=== PATIENT | male | born 1980 | race Caucasian/White ===

== ENCOUNTER 2016-12-13 16:06 | Emergency (ER) | payer OTHER ==
[~2016-12-13] VITALS: Ht 190.5 cm; Wt 100.0 kg
[2016-12-13] MEDS ORDERED: ULTRAM50 M1 PO (17:17)
[2016-12-13 17:30] VITALS: BP 118/60
== END 2016-12-13 17:30 | disposition home or self-care (01) | DRG 552 ==
LOC: ED 16:06
DX: S16.1XXA Strain of muscle, fascia and tendon at neck level, initial encounter (principal); S09.90XA Unspecified injury of head, initial encounter; F17.210 Nicotine dependence, cigarettes, uncomplicated; V49.40XA Driver injured in collision with unspecified motor vehicles in traffic accident, initial encounter

== ENCOUNTER 2017-02-09 19:02 | Emergency (ER) | payer SELFPAY ==
[~2017-02-09] VITALS: Ht 190.5 cm; Wt 113.2 kg
[~2017-02-09 19:02] MED LIST: ULTRAM50 M1 PO
[2017-02-09 19:43] LABS: HEMATOCRIT 50.5 % (39.0-50.0); HEMOGLOBIN 17.6 g/dl (14.0-18.0); IMMATURE GRANULOCYTES 0.3 % (0.0-1.0); MEAN CELL VOLUME 86.6 fL CALC (80.0-100.0); MEAN CORPUSCULAR HGB 30.2 pG CALC (26.0-32.0); MEAN CORPUSCULAR HGB CONC 34.9 g/L CALC (32.0-36.0); NEUT# 9.06 thou/uL (1.82-7.42); RED BLOOD COUNT 5.83 mill/uL (4.70-6.10); RED CELL DISTRI WIDTH 12.5 % (11.5-15.5)
[2017-02-09 19:46] LABS: URINE BILIRUBIN - DIPSTICK NEGATIVE (NEGATIVE); URINE BLOOD DIPSTICK NEGATIVE (NEGATIVE); URINE COLOR YELLOW; URINE GLUCOSE - DIPSTICK NEGATIVE (NEGATIVE); URINE KETONE NEGATIVE (NEGATIVE); URINE NITRITE - DIPSTICK NEGATIVE (Negative); URINE PROTEIN - DIPSTICK NEGATIVE (NEG-TRACE); URINE UROBILINOGEN - DIPSTICK 0.2 E.U./dL (0.2)
[2017-02-09 19:48] LABS: BARBITURATES NEGATIVE (NEGATIVE); COCAINE NEGATIVE (NEGATIVE); METHADONE NEGATIVE (NEGATIVE); OXCYCODONE NEGATIVE (NEGATIVE); TETRAHYDROCANNABIONOL NEGATIVE (NEGATIVE); TRICYLIC ANTIDEPRESSANTS NEGATIVE (NEGATIVE)
[2017-02-09 19:49] LABS: URINE CLARITY HAZY; URINE LEUK ESTERASE SMALL (NEGATIVE)
[2017-02-09 19:51] LABS: ALBUMIN 5.1 g/dL (3.2-5.0); ALKALINE PHOSPHATASE 98 u/l (38-126); AMYLASE 55 u/l (30-110); ANION GAP 19 (6-22 (CALC)); BILIRUBIN, TOTAL 1.2 mg/dL (0.0-1.4); BUN 13 mg/dL (9-20); BUN/CREATININE RATIO 10 (12-20 (CALC)); CALCIUM 9.7 mg/dL (8.4-10.2); CARBON DIOXIDE 28 mmol/l (22-30); CHLORIDE 100 mmol/l (95-108); CREATININE 1.3 mg/dL (0.7-1.3); GFR > 60 ML/MIN (>=60 (CALC)); GFR FOR AFR.AMER. > 60 ML/MIN (>=60 (CALC)); GLUCOSE 110 mg/dL (75-110); LIPASE 25 u/l (23-300); POTASSIUM 4.3 mmol/l (3.5-5.1); SGOT/AST 50 u/l (17-59); SGPT/ALT 56 u/l (21-72); SODIUM 143 mmol/l (137-146); TOTAL PROTEIN 8.9 g/dL (6.3-8.2)
[2017-02-09 20:39] LABS: INFLUENZA A NONE DETECTED (NONE DETECT); INFLUENZA B NONE DETECTED (NONE DETECT)
[2017-02-10] MEDS ORDERED: CIPROFLOXACN500 MG PO (00:21)
[2017-02-10 00:25] VITALS: BP 99/62
[2017-02-11] MEDS ORDERED: ZPAK PO (22:45)
== END 2017-02-10 00:25 | disposition home or self-care (01) | DRG 690 ==
LOC: ED 19:02
PROVIDERS: Emergency Medicine
DX: N39.0 Urinary tract infection, site not specified (principal); R51 Headache; R11.2 Nausea with vomiting, unspecified

== ENCOUNTER 2017-02-11 19:48 | Emergency (ER) | payer SELFPAY ==
[~2017-02-11] VITALS: Ht 190.5 cm; Wt 112.8 kg
[~2017-02-11 19:48] MED LIST changes: +CIPROFLOXACN500 MG PO
[2017-02-11 21:48] LABS: HEMATOCRIT 51.6 % (39.0-50.0); HEMOGLOBIN 17.9 g/dl (14.0-18.0); IMMATURE GRANULOCYTES 0.4 % (0.0-1.0); MEAN CORPUSCULAR HGB 30.2 pG CALC (26.0-32.0); MEAN CORPUSCULAR HGB CONC 34.7 g/L CALC (32.0-36.0); NEUT# 7.94 thou/uL (1.82-7.42); RED BLOOD COUNT 5.93 mill/uL (4.70-6.10); RED CELL DISTRI WIDTH 12.4 % (11.5-15.5)
[2017-02-11 22:00] LABS: ALBUMIN 5.4 g/dL (3.2-5.0); BILIRUBIN, TOTAL 1.1 mg/dL (0.0-1.4); CALCIUM 10.2 mg/dL (8.4-10.2); CREATININE 1.9 mg/dL (0.7-1.3); POTASSIUM 3.9 mmol/l (3.5-5.1); TOTAL PROTEIN 8.9 g/dL (6.3-8.2)
[2017-02-11] MEDS ORDERED: ZPAK PO (22:45)
[2017-02-11 23:25] VITALS: BP 126/84
== END 2017-02-11 23:38 | disposition home or self-care (01) | DRG 194 ==
LOC: ED 19:48
PROVIDERS: Emergency Medicine
DX: J18.9 Pneumonia, unspecified organism (principal); N17.9 Acute kidney failure, unspecified; F17.210 Nicotine dependence, cigarettes, uncomplicated; R06.02 Shortness of breath

== ENCOUNTER 2018-12-22 18:04 | Emergency (ER) | payer SELFPAY ==
[~2018-12-22] VITALS: Ht 190.5 cm; Wt 90.0 kg
[~2018-12-22 18:04] MED LIST changes: +ZPAK PO
[2018-12-22 18:22] LABS: URINE BILIRUBIN - DIPSTICK NEGATIVE (NEGATIVE); URINE BLOOD DIPSTICK NEGATIVE (NEGATIVE); URINE COLOR YELLOW; URINE GLUCOSE - DIPSTICK NEGATIVE (NEGATIVE); URINE KETONE NEGATIVE (NEGATIVE); URINE LEUK ESTERASE NEGATIVE (NEGATIVE); URINE NITRITE - DIPSTICK NEGATIVE (Negative); URINE PH 5.5 (4.5-8.0); URINE PROTEIN - DIPSTICK NEGATIVE (NEG-TRACE); URINE SPECIFIC GRAVITY >=1.030; URINE UROBILINOGEN - DIPSTICK 0.2 E.U./dL (0.2)
[2018-12-22 18:26] LABS: HEMATOCRIT 52.5 % (39.0-50.0); HEMOGLOBIN 17.8 g/dl (14.0-18.0); IMMATURE GRANULOCYTES 0.3 % (0.0-5.0); MEAN CELL VOLUME 88.5 fL CALC (80.0-100.0); MEAN CORPUSCULAR HGB CONC 33.9 g/L CALC (32.0-36.0); NEUT# 8.06 thou/uL (1.82-7.42); RED BLOOD COUNT 5.93 mill/uL (4.70-6.10); RED CELL DISTRI WIDTH 12.4 % (11.5-15.5)
[2018-12-22 18:44] LABS: ALBUMIN 4.9 g/dL (3.2-5.0); ALKALINE PHOSPHATASE 94 u/l (38-126); ANION GAP 15 (6-22 (CALC)); BILIRUBIN, TOTAL 1.1 mg/dL (0.0-1.4); BUN 10 mg/dL (9-20); BUN/CREATININE RATIO 7 (12-20 (CALC)); CARBON DIOXIDE 29 mmol/l (22-30); CHLORIDE 101 mmol/l (95-108); CREATININE 1.3 mg/dL (0.7-1.3); GFR > 60 ML/MIN (>=60 (CALC)); GFR FOR AFR.AMER. > 60 ML/MIN (>=60 (CALC)); POTASSIUM 4.3 mmol/l (3.5-5.1); SGOT/AST 43 u/l (17-59); SODIUM 141 mmol/l (137-146); TOTAL PROTEIN 8.1 g/dL (6.3-8.2)
[2018-12-22] MEDS ORDERED: ORPHENADRINE100 MG PO (20:10)
[2018-12-22] MEDS ORDERED: IBUPROFEN600 MG PO (20:10)
[2018-12-22 20:25] VITALS: BP 116/70
== END 2018-12-22 20:25 | disposition home or self-care (01) | DRG 552 ==
LOC: ED 18:04
PROVIDERS: Emergency Medicine
DX: M54.5 Low back pain (principal); F17.200 Nicotine dependence, unspecified, uncomplicated; Z87.442 Personal history of urinary calculi
CPT/HCPCS: Q9967

== ENCOUNTER 2019-02-20 20:03 | Emergency (ER) | payer SELFPAY ==
[~2019-02-20] VITALS: Ht 190.5 cm; Wt 104.5 kg
[~2019-02-20 20:03] MED LIST changes: +IBUPROFEN600 MG PO; +ORPHENADRINE100 MG PO
[2019-02-20] MEDS ORDERED: NAPROXEN500 MG PO (20:48)
[2019-02-20 21:00] VITALS: BP 126/82
== END 2019-02-20 21:00 | disposition home or self-care (01) | DRG 563 ==
LOC: ED 20:03
DX: S93.402A Sprain of unspecified ligament of left ankle, initial encounter (principal); S93.602A Unspecified sprain of left foot, initial encounter; F17.210 Nicotine dependence, cigarettes, uncomplicated; W17.2XXA Fall into hole, initial encounter; Y93.9 Activity, unspecified; Y92.89 Other specified places as the place of occurrence of the external cause; Y99.0 Civilian activity done for income or pay

== ENCOUNTER 2019-06-04 19:07 | Emergency (ER) | payer SELFPAY ==
[~2019-06-04] VITALS: Ht 190.5 cm; Wt 106.8 kg
[~2019-06-04 19:07] MED LIST changes: +NAPROXEN500 MG PO
[2019-06-04] MEDS ORDERED: VOLTAREN - GENE75 MG PO (20:44)
[2019-06-04] MEDS ORDERED: TRAMADOL HCL50 MG PO (20:44)
[2019-06-04 20:46] VITALS: BP 130/86
== END 2019-06-04 20:50 | disposition home or self-care (01) | DRG 605 ==
LOC: ED 19:07
DX: S90.31XA Contusion of right foot, initial encounter (principal); F17.210 Nicotine dependence, cigarettes, uncomplicated; W20.8XXA Other cause of strike by thrown, projected or falling object, initial encounter; Y93.89 Activity, other specified; Y92.89 Other specified places as the place of occurrence of the external cause; Y99.0 Civilian activity done for income or pay

== ENCOUNTER 2019-09-06 | Emergency (ER) | payer SELFPAY ==
[~2019-09-06] MED LIST changes: +TRAMADOL HCL50 MG PO; +VOLTAREN - GENE75 MG PO
[2019-09-06 04:02] LABS: HEMATOCRIT 50.5 % (39.0-50.0); IMMATURE GRANULOCYTES 0.5 % (0.0-5.0); MEAN CELL VOLUME 88.8 fL CALC (80.0-100.0); MEAN CORPUSCULAR HGB 29.9 pG CALC (26.0-32.0); MEAN CORPUSCULAR HGB CONC 33.7 g/dL CAL (32.0-36.0); NEUT# 4.45 thou/uL (1.82-7.42); RED BLOOD COUNT 5.69 mill/uL (4.70-6.10); RED CELL DISTRI WIDTH 12.3 % (11.5-15.5)
[2019-09-06 04:18] LABS: AMYLASE 60 u/l (30-110); LIPASE 87 u/l (23-300)
[2019-09-06 04:20] LABS: ALBUMIN 4.3 g/dL (3.2-5.0); ALKALINE PHOSPHATASE 117 u/l (38-126); ANION GAP 12 (6-22 (CALC)); BUN 13 mg/dL (9-20); BUN/CREATININE RATIO 12 (12-20 (CALC)); CARBON DIOXIDE 27 mmol/l (22-30); CHLORIDE 104 mmol/l (95-108); CREATININE 1.1 mg/dL (0.7-1.3); GFR > 60 ML/MIN (>=60 (CALC)); GFR FOR AFR.AMER. > 60 ML/MIN (>=60 (CALC)); POTASSIUM 4.1 mmol/l (3.5-5.1); SGOT/AST 47 u/l (17-59); SODIUM 139 mmol/l (137-146); TOTAL PROTEIN 7.5 g/dL (6.3-8.2)
[2019-09-06 04:30] LABS: BILIRUBIN, TOTAL 0.4 mg/dL (0.0-1.4)
[2019-09-06] MEDS ORDERED: ONDANSETRON4 MG PO (05:39)
[2019-09-06] MEDS ORDERED: LORTAB 1010 MG PO (05:39)
== END 2019-09-06 06:16 | disposition home or self-care (01) | DRG 694 ==
PROVIDERS: Emergency Medicine
DX: N13.2 Hydronephrosis with renal and ureteral calculous obstruction (principal); F17.200 Nicotine dependence, unspecified, uncomplicated; Z87.442 Personal history of urinary calculi

== ENCOUNTER 2020-07-04 14:51 | Emergency (ER) | payer SELFPAY ==
[~2020-07-04] VITALS: Ht 190.5 cm; Wt 90.0 kg
[~2020-07-04 14:51] MED LIST changes: +LORTAB 1010 MG PO; +ONDANSETRON4 MG PO
[2020-07-04] MEDS ORDERED: MOTRIN800 MG PO (16:59)
[2020-07-04] MEDS ORDERED: KEFLEX500 MG PO (16:59)
[2020-07-04] MEDS ORDERED: ERYTHROMYCIN O3.5 GM OU (17:00)
[2020-07-04 17:10] VITALS: BP 139/89
== END 2020-07-04 17:10 | disposition home or self-care (01) | DRG 125 ==
LOC: ED 14:51
DX: S01.131A Puncture wound without foreign body of right eyelid and periocular area, initial encounter (principal); F17.200 Nicotine dependence, unspecified, uncomplicated; W60.XXXA Contact with nonvenomous plant thorns and spines and sharp leaves, initial encounter; Y93.H2 Activity, gardening and landscaping; Y92.9 Unspecified place or not applicable; Y99.0 Civilian activity done for income or pay

== ENCOUNTER 2020-08-31 16:57 | Emergency (ER) | payer SELFPAY ==
[~2020-08-31] VITALS: Ht 190.5 cm; Wt 113.6 kg
[~2020-08-31 16:57] MED LIST changes: +ERYTHROMYCIN O3.5 GM OU; +KEFLEX500 MG PO; +MOTRIN800 MG PO
[2020-08-31] MEDS ORDERED: AMOX/K CLAV875 M1 PO (17:35)
[2020-08-31 17:50] VITALS: BP 128/83
== END 2020-08-31 17:50 | disposition home or self-care (01) | DRG 159 ==
LOC: ED 16:57
DX: K04.7 Periapical abscess without sinus (principal); F17.210 Nicotine dependence, cigarettes, uncomplicated

== ENCOUNTER 2020-12-12 17:26 | Emergency (ER) | payer MEDICAID ==
[~2020-12-12] VITALS: Ht 190.5 cm; Wt 102.0 kg
[~2020-12-12 17:26] MED LIST changes: +AMOX/K CLAV875 M1 PO
[2020-12-12 18:26] VITALS: BP 148/81
== END 2020-12-12 18:30 | disposition home or self-care (01) | DRG 556 ==
LOC: ED 17:26
DX: M25.572 Pain in left ankle and joints of left foot (principal); F17.210 Nicotine dependence, cigarettes, uncomplicated; X50.0XXA Overexertion from strenuous movement or load, initial encounter; Y93.89 Activity, other specified; Y92.89 Other specified places as the place of occurrence of the external cause; Y99.0 Civilian activity done for income or pay

== ENCOUNTER 2023-02-28 10:21 | Emergency (ER) | payer SELFPAY ==
[~2023-02-28] VITALS: Ht 190.5 cm; Wt 104.3 kg
[2023-02-28 11:09] LABS: BASO% 0.5 % (0-3); EOS% 1.6 % (0-8); HEMATOCRIT 45.7 % (39.0-50.0); HEMOGLOBIN 15.8 g/dl (14.0-18.0); IMMATURE GRANULOCYTES 0.1 % (0.0-5.0); LYMPH% 20.3 % (15-41); MEAN CELL VOLUME 87.7 fL CALC (80.0-100.0); MEAN CORPUSCULAR HGB 30.3 pG CALC (26.0-32.0); MEAN CORPUSCULAR HGB CONC 34.6 g/dL CAL (32.0-36.0); MONO% 5.3 % (2-13); NEUT# 5.9 thou/uL (1.82-7.42); NEUT% 72.2 % (42-76); RED BLOOD COUNT 5.21 mill/uL (4.70-6.10); RED CELL DISTRI WIDTH 12.2 % (11.5-15.5)
[2023-02-28 11:11] LABS: ALBUMIN 4.1 g/dL (3.2-5.0); ALKALINE PHOSPHATASE 90 u/l (38-126); ANION GAP 10 (6-22 (CALC)); BUN 6 mg/dL (9-20); BUN/CREATININE RATIO 6 (12-20 (CALC)); CARBON DIOXIDE 28 mmol/l (22-30); CHLORIDE 102 mmol/l (95-108); GFR FOR AFR.AMER. > 60 ML/MIN (>=60 (CALC)); GFR OTHER RACES > 60 ML/MIN (>=60 (CALC)); POTASSIUM 3.4 mmol/l (3.5-5.1); SGOT/AST 46 u/l (17-59); SODIUM 137 mmol/l (137-146); TOTAL PROTEIN 7.1 g/dL (6.3-8.2)
[2023-02-28 11:23] LABS: BILIRUBIN, TOTAL 0.6 mg/dL (0.2-1.3)
[2023-02-28] MEDS ORDERED: IMITREX50 MG PO (12:44)
[2023-02-28 12:57] VITALS: BP 131/96
== END 2023-02-28 13:06 | disposition home or self-care (01) | DRG 103 ==
LOC: ED 10:21
PROVIDERS: Family Medicine
DX: R51.9 Headache, unspecified (principal); F17.200 Nicotine dependence, unspecified, uncomplicated